=== PATIENT | female | born 1985 | race Caucasian/White ===

== ENCOUNTER 2017-02-11 12:06 | Emergency (ER) | payer OTHER ==
[~2017-02-11] VITALS: Ht 160 cm; Wt 56.7 kg
--- NOTE | 2017-02-11 12:34 | PHYS DOC ---
Past Medical History Past Medical History: Depression, Other Additional Past Medical Histor: EPILEPSY, ENDOMETRIOSIS Past Surgical History: Hysterectomy, Other Additional Past Surgical Histo: laparoscopy Alcohol Use: None Drug Use: None Adult General Chief Complaint Chief Complaint: FLU SYMPTOM HPI HPI Patient is a 31 year old female presenting to the emergency department for evaluation of abdominal pain nausea and vomiting that has been going on for several days but became much worse yesterday the point that she cannot hold anything down. She says that even sips of water she is throwing up at this point. She denies any diarrhea but said that she has had some bloody stools or bright red. He denies any fevers chills dysuria hematuria vaginal bleeding or vaginal discharge. She has had Multiple abdominal surgeries including a complete hysterectomy. Patient is in no obvious distress with normal vital signs. Review of Systems Review of Systems Constitutional: Denies fever or chills [] Eyes: Denies change in visual acuity, redness, or eye pain [] HENT: Denies nasal congestion or sore throat [] Respiratory: Denies cough or shortness of breath [] Cardiovascular: No additional information not addressed in HPI [] GI:+ abdominal pain, nausea, vomiting, bloody stools. No diarrhea [] : Denies dysuria or hematuria [] Musculoskeletal: Denies back pain or joint pain [] Integument: Denies rash or skin lesions [] Neurologic: Denies headache, focal weakness or sensory changes [] Current Medications Current Medications Current Medications Medications (Trade) Dose Ordered Sig/Smitha Start Time Stop Time Status Last Admin Dose Admin Info (Do NOT chart on this entry -- for MONITORING) 1 each PRN DAILY PRN 02/11/17 12:45 02/13/17 12:44 Iohexol (Omnipaque 300 Mg/ml) 75 ml 1X ONCE 02/11/17 12:45 02/11/17 12:46 DC 02/11/17 12:45 75 ML Morphine Sulfate 5 mg 1X ONCE 02/11/17 12:45 02/11/17 12:46 DC 02/11/17 13:58 5 MG Ondansetron HCl (Zofran) 8 mg 1X ONCE 02/11/17 12:45 02/11/17 12:46 DC 02/11/17 13:58 8 MG Potassium Chloride (Klor-Con) 20 meq 1X ONCE 02/11/17 14:00 02/11/17 14:01 DC 02/11/17 14:27 20 MEQ Promethazine HCl 12.5 mg/Sodium Chloride 50.5 ml @ 101 mls/hr 1X ONCE 02/11/17 15:45 02/11/17 16:14 02/11/17 15:41 101 MLS/HR Sodium Chloride 1,000 ml @ 1,000 mls/hr 1X ONCE 02/11/17 12:45 02/11/17 13:44 DC 02/11/17 13:57 1,000 MLS/HR Allergies Allergies Allergies Coded Allergies Type Severity Reaction Last Updated Verified Penicillins Allergy Intermediate 03/12/14 Yes amoxicillin Allergy Intermediate 03/12/14 Yes diphenhydramine HCl Allergy Intermediate 03/12/14 Yes codeine Adverse Reaction Intermediate Itching 02/03/15 Yes Physical Exam Physical Exam Constitutional: Well developed, well nourished, no acute distress, non-toxic appearance. [] HENT: Normocephalic, atraumatic, bilateral external ears normal, oropharynx moist, no oral exudates, nose normal. [] Eyes: PERRLA, EOMI, conjunctiva normal, no discharge. [] Neck: Normal range of motion, no tenderness, supple, no stridor. [] Cardiovascular:Heart rate regular rhythm, no murmur [] Lungs & Thorax: Bilateral breath sounds clear to auscultation [] Abdomen: Bowel sounds normal, soft, diffuse abdominal tenderness, worse in RLQ, no rebound or guarding, no masses, no pulsatile masses. [] Skin: Warm, dry, no erythema, no rash. [] Back: No tenderness, no CVA tenderness. [] Extremities: No tenderness, no cyanosis, no clubbing, ROM intact, no edema. [] Neurologic: Alert and oriented X 3, normal motor function, normal sensory function, no focal deficits noted. [] Current Patient Data Vital Signs Vital Signs Date Time Temp Pulse Resp B/P (MAP) Pulse Ox O2 Delivery O2 Flow Rate FiO2 02/11/17 14:26 86 112/60 (77) 97 Room Air 02/11/17 13:58 16 02/11/17 12:10 98.9 98.9 Lab Values Laboratory Tests Test 02/11/17 13:00 02/11/17 14:05 White Blood Count 8.4 x10^3/uL (4.0-11.0) Red Blood Count 4.40 x10^6/uL (3.50-5.40) Hemoglobin 13.8 g/dL (12.0-15.5) Hematocrit 39.9 % (36.0-47.0) Mean Corpuscular Volume 91 fL (79-100) Mean Corpuscular Hemoglobin 31 pg (25-35) Mean Corpuscular Hemoglobin Concent 35 g/dL (31-37) Red Cell Distribution Width 12.3 % (11.5-14.5) Platelet Count 341 x10^3/uL (140-400) Neutrophils (%) (Auto) 77 % (31-73) H Lymphocytes (%) (Auto) 15 % (24-48) L Monocytes (%) (Auto) 7 % (0-9) Eosinophils (%) (Auto) 0 % (0-3) Basophils (%) (Auto) 1 % (0-3) Neutrophils # (Auto) 6.5 x10^3uL (1.8-7.7) Lymphocytes # (Auto) 1.3 x10^3/uL (1.0-4.8) Monocytes # (Auto) 0.6 x10^3/uL (0.0-1.1) Eosinophils # (Auto) 0.0 x10^3/uL (0.0-0.7) Basophils # (Auto) 0.1 x10^3/uL (0.0-0.2) Sodium Level 141 mmol/L (136-145) Potassium Level 3.3 mmol/L (3.5-5.1) L Chloride Level 99 mmol/L (98-107) Carbon Dioxide Level 32 mmol/L (21-32) Anion Gap 10 (6-14) Blood Urea Nitrogen 19 mg/dL (7-20) Creatinine 0.9 mg/dL (0.6-1.0) Estimated GFR (Cockcroft-Gault) 72.6 BUN/Creatinine Ratio 21 (6-20) H Glucose Level 104 mg/dL (70-99) H Calcium Level 9.9 mg/dL (8.5-10.1) Magnesium Level 2.4 mg/dL (1.8-2.4) Total Bilirubin 0.4 mg/dL (0.2-1.0) Aspartate Amino Transferase (AST) 15 U/L (15-37) Alanine Aminotransferase (ALT) 17 U/L (14-59) Alkaline Phosphatase 56 U/L (46-116) Creatine Kinase 50 U/L (26-192) Total Protein 8.8 g/dL (6.4-8.2) H Albumin 4.8 g/dL (3.4-5.0) Albumin/Globulin Ratio 1.2 (1.0-1.7) Lipase 110 U/L (73-393) Ethyl Alcohol Level < 10 mg/dL (0-10) Urine Collection Type Unknown Urine Color Yellow Urine Clarity Clear Urine pH 7.0 Urine Specific [place]arshall >=1.030 Urine Protein Negative mg/dL (NEG-TRACE) Urine Glucose (UA) Negative mg/dL (NEG) Urine Ketones (Stick) Trace mg/dL (NEG) Urine Blood Negative (NEG) Urine Nitrite Negative (NEG) Urine Bilirubin Negative (NEG) Urine Urobilinogen Dipstick 0.2 mg/dL (0.2 mg/dL) Urine Leukocyte Esterase Negative (NEG) Urine RBC 0 /HPF (0-2) Urine WBC 1-4 /HPF (0-4) Urine Squamous Epithelial Cells Mod /LPF Urine Bacteria Moderate /HPF (0-FEW) Urine Mucus Slight /LPF Urine Opiates Screen Pos (NEG) Urine Methadone Screen Neg (NEG) Urine Barbiturates Neg (NEG) Urine Phencyclidine Screen Neg (NEG) Urine Amphetamine/Methamphetamine Pos (NEG) Urine Benzodiazepines Screen Neg (NEG) Urine Cocaine Screen Neg (NEG) Urine Cannabinoids Screen Pos (NEG) Urine Ethyl Alcohol Neg (NEG) Laboratory Tests 02/11/17 13:00 Laboratory Tests 02/11/17 13:00 EKG EKG [] Radiology/Procedures Radiology/Procedures CT Abdomen and Pelvis With Intravenous Contrast: History: Right lower quadrant pain, nausea and vomiting. Comparison: CT abdomen pelvis February 03, 2015. Technique: After administration of intravenous contrast, 75 mL Omnipaque-300, CT of the abdomen and pelvis was performed. Patient demonstrated nausea during acquisition of the examination. Exposure: One or more of the following individualized dose reduction techniques were utilized for this examination: 1. Automated exposure control 2. Adjustment of the mA and/or kV according to patient size 3. Use of iterative reconstruction technique Findings: Motion artifact is seen at several levels, which could obscure subtle abnormalities. Evaluation of enteric structures may be limited by lack of oral contrast. Focal fatty infiltration is seen in the liver adjacent to the fissure for ligamentum teres. The spleen, pancreas, gallbladder, and bilateral adrenal glands are unremarkable. Bilateral kidneys enhance symmetrically. No bowel obstruction or inflammation is identified. Appendix is without evidence of inflammation. No free air free fluid is in the abdomen or pelvis. Urinary bladder is unremarkable. Uterus is not seen, presumably absent. Impression: 1. No acute abnormality identified in the abdomen or pelvis. Electronically signed by: Morgan Whitmore MD (02/11/2017 2:16 PM) [facility] DICTATED and SIGNED BY: MORGAN WHITMORE MD DATE: 02/11/17 9125 Course & Med Decision Making Course & Med Decision Making Patient with abdominal pain nausea vomiting and cannot tolerate anything by mouth. She will get Labs CT treat symptoms and reassess. Labs and CT negative for acute process. Mother called in and spoke to the nurse and mother states that patient has been abusing Dilaudid and methadone. She may be withdrawing from opioids at this time. I did ask the patient about the possibility of opioid withdrawal and she did confirm that she was on Suboxone and she has not had an opioid and approximately one week. Based off most literature opiate withdrawal symptoms can last up to a month. She says that she cannot get into her doctor's office until next week given the . She is wanting medications that will help with withdrawal symptoms. She is feeling much better now and is able to drink fluids without any difficulty. I told her that I will start her on clonidine and Ativan for withdrawal symptoms and Zofran for nausea vomiting and she needs to drink plenty of fluids and eat a well-balanced diet. Patient aware and agreeable with plan for discharge and verbalized understanding of the need for short-term follow-up and strict ED return precautions discussed worsening pain fevers vomiting or other general concerns. Dragon Disclaimer Dragon Disclaimer This electronic medical record was generated, in whole or in part, using a voice recognition dictation system. Departure Departure Impression: Primary Impression: Abdominal pain Additional Impressions: Nausea & vomiting Hypokalemia Opioid withdrawal Disposition: 01 HOME, SELF-CARE Condition: STABLE Referrals: NO PCP (PCP) Patient Instructions: Heroin Abuse and Withdrawal Additional Instructions: MAKE SURE THAT YOU ARE DRINKING PLENTY OF FLUIDS, MOSTLY WATER AND GATORADE. EAT A GOOD WELL BALANCED DIET. THE CLONIDINE IS TO BE TAKEN WHEN YOU ARE FEELING AGITATED APPX EVERY 3 HOURS NEEDED. THE ATIVAN IS FOR WITHDRAWAL SYMPTOMS WELL. DO NOT TAKE THE MEDICATIONS TOGETHER, TAKE THEM APPX 3 HOURS APART. Scripts Ondansetron (ZOFRAN ODT) 4 Mg Tab.rapdis 4 MG PO BID Y for NAUSEA/VOMITING, #14 TAB Prov: VINAYAK BEAN DO 02/11/17 Lorazepam (ATIVAN) 0.5 Mg Tablet 0.5 MG PO TID, #14 TAB Prov: VINAYAK BEAN DO 02/11/17 Clonidine Hcl (CLONIDINE HCL) 0.1 Mg Tablet 1 TAB PO Q3-4HRS Y for WITHDRAWAL IRRITABILITY, #30 TAB 0 Refills Prov: VINAYAK BEAN DO 02/11/17 Problem Qualifiers Primary Impression: Abdominal pain Abdominal location: generalized Qualified Codes: R10.84 - Generalized abdominal pain VINAYAK BEAN DO Feb 11, 2017 12:34
[2017-02-11] MEDS ORDERED: IV NORMAL SALINE 1000ML BAG 1,000 ML IV ONE (12:45)
[2017-02-11] MEDS ORDERED: CONTRAST GIVEN MC PRN (12:45)
[2017-02-11] MEDS ORDERED: IOHEXOL 300 MG/ML 100ML VIAL. IV ONE (12:45)
[2017-02-11] MEDS ORDERED: ONDANSETRON PF 4 MG/2 ML VIAL. IV ONE (12:45)
[2017-02-11] MEDS ORDERED: MORPHINE SULFATE 10 MG/ML VIAL. IV ONE (12:45)
[2017-02-11 13:07] LABS: BASO # 0.1 x10^3/uL (0.0-0.2); BASO % 1 % (0-3); EOS % 0 % (0-3); HEMATOCRIT 39.9 % (36.0-47.0); HEMOGLOBIN 13.8 g/dL (12.0-15.5); LYMPH # 1.3 x10^3/uL (1.0-4.8); LYMPH % 15 % (24-48); MEAN CORPUSCULAR HEMOGLOBIN 31 pg (25-35); MEAN CORPUSCULAR HGB CONC 35 g/dL (31-37); MEAN CORPUSCULAR VOLUME 91 fL (79-100); MONO % 7 % (0-9); NEUT % 77 % (31-73); PLATELET COUNT 341 x10^3/uL (140-400); RED CELL DISTRIBUTION WIDTH 12.3 % (11.5-14.5); WHITE BLOOD COUNT 8.4 x10^3/uL (4.0-11.0)
[2017-02-11 13:16] LABS: CALCIUM 9.9 mg/dL (8.5-10.1); CREATININE 0.9 mg/dL (0.6-1.0); GFR 72.6; POTASSIUM 3.3 mmol/L (3.5-5.1)
[2017-02-11 13:22] LABS: ALBUMIN 4.8 g/dL (3.4-5.0); ALBUMIN/GLOBULIN RATIO 1.2 (1.0-1.7); MAGNESIUM 2.4 mg/dL (1.8-2.4); TOTAL BILIRUBIN 0.4 mg/dL (0.2-1.0); TOTAL PROTEIN 8.8 g/dL (6.4-8.2)
[2017-02-11] MEDS ORDERED: POTASSIUM CHLORIDE 20 MEQ TABLET.ER. PO ONE (14:00)
--- NOTE | 2017-02-11 14:20 | RAD ---
CT Abdomen and Pelvis With Intravenous Contrast: History: Right lower quadrant pain, nausea and vomiting. Comparison: CT abdomen pelvis February 03, 2015. Technique: After administration of intravenous contrast, 75 mL Omnipaque-300, CT of the abdomen and pelvis was performed. Patient demonstrated nausea during acquisition of the examination. Exposure: One or more of the following individualized dose reduction techniques were utilized for this examination: 1. Automated exposure control 2. Adjustment of the mA and/or kV according to patient size 3. Use of iterative reconstruction technique Findings: Motion artifact is seen at several levels, which could obscure subtle abnormalities. Evaluation of enteric structures may be limited by lack of oral contrast. Focal fatty infiltration is seen in the liver adjacent to the fissure for ligamentum teres. The spleen, pancreas, gallbladder, and bilateral adrenal glands are unremarkable. Bilateral kidneys enhance symmetrically. No bowel obstruction or inflammation is identified. Appendix is without evidence of inflammation. No free air free fluid is in the abdomen or pelvis. Urinary bladder is unremarkable. Uterus is not seen, presumably absent. Impression: 1. No acute abnormality identified in the abdomen or pelvis. Electronically signed by: Morgan Whitmore MD (02/11/2017 2:16 PM) [place] [id number]
[2017-02-11] MEDS ORDERED: LORA0.5T96 PO (15:04)
[2017-02-11] MEDS ORDERED: CLON0.1T PO (15:04)
[2017-02-11] MEDS ORDERED: ONDA4TAB10 PO (15:04)
[2017-02-11 15:10] LABS: BILIRUBIN,URINE NEGATIVE (NEG); GLUCOSE,URINE NEGATIVE (NEG); NITRITE,URINE NEGATIVE (NEG); PROTEIN,URINE NEGATIVE (NEG-TRACE); UROBILINOGEN,URINE 0.2 mg/dL (0.2 mg/dL)
[2017-02-11 15:17] LABS: BARBITURATES NEG (NEG); BENZODIAZEPINES NEG (NEG); CANNABINOIDS POS (NEG); COCAINE NEG (NEG); METHADONE NEG (NEG); OPIATES POS (NEG); PHENCYCLIDINE NEG (NEG)
[2017-02-11 15:26] VITALS: BP 118/69
[2017-02-11 15:30] LABS: BACTERIA,URINE MODERATE /HPF (0-FEW); RBC,URINE 0 /HPF (0-2); SQUAMOUS EPITHELIAL CELL,UR MOD /LPF
[2017-02-11] MEDS ORDERED: PROMETHAZINE 12.5 MG in IV NORMAL SALINE 50ML 50 ML IV ONE (15:45)
== END 2017-02-11 16:10 | disposition home or self-care (01) ==
LOC: ER 12:06
DX: R10.84 Generalized abdominal pain (principal); R10.31 Right lower quadrant pain; R11.2 Nausea with vomiting, unspecified; E87.6 Hypokalemia; F11.23 Opioid dependence with withdrawal; F32.9 Major depressive disorder, single episode, unspecified; G40.909 Epilepsy, unspecified, not intractable, without status epilepticus; Z90.710 Acquired absence of both cervix and uterus; Z88.0 Allergy status to penicillin; Z88.1 Allergy status to other antibiotic agents; Z88.5 Allergy status to narcotic agent; Z88.8 Allergy status to other drugs, medicaments and biological substances
CPT/HCPCS: 36415; 74177; 80053; 80307; 81001; 82550; 83690; 83735; 85025; 87086; 96361; 96374; 96375; 99285; G0480; J2270; J2405; J2550; J7030; Q9967; G0479